=== PATIENT | male | born 1990 | race Caucasian/White ===

== ENCOUNTER 2024-01-01 07:20 | Day surgery (SDC) | payer BC, MEDICAID ==
[~2024-01-01] VITALS: Ht 180.3 cm; Wt 102.1 kg
[~2024-01-01 07:20] MED LIST: CEFAZOLIN SOD 2 GM in D5W 50 ML IV ONE
[2024-01-01] MEDS ORDERED: ACETAMINOPHEN 500 MG TABLET ONE (07:35)
[2024-01-01] MEDS: ACETAMINOPHEN 500 MG TABLET PO ONE (08:13)
[2024-01-01] MEDS ORDERED: DEXAMETHASONE SOD PHOSPHATE 4 MG/ML VIAL ONE (09:55)
[2024-01-01] MEDS ORDERED: ACETAMINOPHEN I.V. 1000 MG 100 ML IV ONE (10:05)
[2024-01-01] MEDS ORDERED: LABETALOL 100 MG/ 20ML VIAL IVP PRN (10:30)
[2024-01-01] MEDS ORDERED: MIDAZOLAM HCL 2 MG/2 ML VIAL (VERSED) IVP PRN (10:30)
[2024-01-01] MEDS ORDERED: LR 1,000 ML IV SCH (10:30)
[2024-01-01] MEDS ORDERED: MEPERIDINE HCL/PF 25 MG/ML DISP.SYRIN IVP PRN (10:30)
[2024-01-01] MEDS ORDERED: hydrALAZINE HCL 20 MG/ML VIAL IVP PRN (10:30)
[2024-01-01] MEDS ORDERED: HYDROmorphone 1 MG/ML INJ. CARTRIDGE IVP PRN (10:30)
[2024-01-01 12:46] VITALS: O2SAT 98
[2024-01-01] MEDS: HYDROmorphone 2 MG/ML VIAL ONE (14:35)
[2024-01-01] MEDS: HYDROmorphone 1 MG/ML INJ. CARTRIDGE IVP PRN (14:50)
[2024-01-01] MEDS ORDERED: METOCLOPRAMIDE HCL 10 MG/2 ML VIAL ONE (16:07)
[2024-01-01] MEDS: METOCLOPRAMIDE HCL 10 MG/2 ML VIAL IVP PRN (16:10)
[2024-01-01 16:57] VITALS: BP_SYST 122; PULSE 96; RESP 18
== END 2024-01-01 17:35 | disposition home or self-care (01) ==
LOC: SMU 07:20 → SDS 07:20
PROVIDERS: ATTEND Orthopaedic Surgery Sports Medicine
DX: S83.281A Other tear of lateral meniscus, current injury, right knee, initial encounter (principal); S83.241A Other tear of medial meniscus, current injury, right knee, initial encounter; M23.612 Other spontaneous disruption of anterior cruciate ligament of left knee; M23.631 Other spontaneous disruption of medial collateral ligament of right knee; M25.561 Pain in right knee; F41.9 Anxiety disorder, unspecified; F32.A Depression, unspecified; X58.XXXA Exposure to other specified factors, initial encounter; Y93.89 Activity, other specified; Y92.89 Other specified places as the place of occurrence of the external cause; Y99.8 Other external cause status
CPT/HCPCS: 87081; 27405; 64447; 29880; J3490; J0690; J1100; J1885; J2765; J3465; J2405; J2704; J3010; J1170; J7060; J7120; L8699; C1713 ×6; J0131; 76000